=== PATIENT | male | born 1960 | race Caucasian/White ===

== ENCOUNTER → 2016-09-24 | Outpatient (CLI) | payer BC ==
[2016-09-24 15:30] LABS: CHLORIDE,CL 106 mmol/L (98-110); SODIUM,NA 140 mmol/L (136-146)
== END ==
LOC: MW.CHORTHO 14:33
PROVIDERS: ATTEND Physician Assistant
DX: M17.12 Unilateral primary osteoarthritis, left knee (principal); M17.11 Unilateral primary osteoarthritis, right knee
CPT/HCPCS: 36415; 80048

== ENCOUNTER → 2016-09-30 | Outpatient (CLI) | payer OTHER ==
--- NOTE | 2016-09-30 11:29 | CR ---
EXAMINATION: Right knee HISTORY: Arthritis COMPARISON: Left knee dated 07/23/2016 TECHNIQUE: 3 views FINDINGS/IMPRESSION: There is mild joint space narrowing within the medial compartment. No fracture or acute osseous abnormality demonstrated. There is mild prepatellar soft tissue thickening with a t race suprapatellar joint fluid.
== END ==
LOC: MW.DI 09:59
PROVIDERS: ATTEND Orthopaedic Surgery
DX: M17.11 Unilateral primary osteoarthritis, right knee (principal)
CPT/HCPCS: 73562-26-RT; 73562-RT